=== PATIENT | male | born 1965 | race Caucasian/White ===

== ENCOUNTER 2019-07-18 09:53 | Emergency (ER) | payer OTHER, SELFPAY ==
[2019-07-18 10:00] VITALS: BP 160/74; PULSE 80; RESP 18; TEMP 36.7; O2SAT 93; BMI 34.3
--- NOTE | 2019-07-18 10:27 | ED_ITS ---
HPI - General Adult General Chief complaint: Shortness of Breath/Dyspnea Stated complaint: CHRONIC COUGH Time Seen by Provider: 07/18/19 10:01 Source: patient Mode of arrival: ambulatory Limitations: no limitations History of Present Illness HPI narrative: Patient is a 54-year-old male with a history of hypertension is currently on lisinopril here for evaluation of a chronic cough. He states that it is a productive cough of clear sputum. Denies any fevers however he does state that he has episodes of profuse sweating. He does not know whether not that is associated with a cough. No recent travel. Has not tried anything for his cough prior to arrival. He states that he at 1 point he was told that he has ?seasonal asthma ?but does not take any medicines for this. Denies any history of reflux. He states that at periods of time he coughs so much that he almost passes out. Related Data Home Medications Medication Instructions Recorded Confirmed aspirin 81 mg PO DAILY 07/18/19 07/18/19 lisinopril 20 mg PO DAILY 07/18/19 07/18/19 Previous Rx's Medication Instructions Recorded hydrochlorothiazide 25 mg PO DAILY #30 tab 07/18/19 Allergies Allergy/AdvReac Type Severity Reaction Status Date / Time No Known Drug Allergies Allergy Verified 07/18/19 10:25 Review of Systems Constitutional Constitutional: Denies fever(s) Cardiovascular Cardiovascular: Denies chest pain Respiratory Respiratory: Reports cough Gastrointestinal Gastrointestinal: Denies abdominal pain, Denies nausea and Denies vomiting Musculoskeletal Musculoskeletal: Denies myalgias and Denies arthralgias Integumentary/Breasts Skin/Breast: Denies rash Neurologic Neurologic: Denies behavioral changes Psychiatric Psychiatric: Denies behavioral changes Hematologic/Lymphatic Hematologic/Lymphatic: Denies easy bleeding and Denies easy bruising [facility] Medical History Hypertension (Acute) Social History Smoking Status: Never smoker Social History Smoking Status: Never smoker Exam Initial Vital Signs Initial Vital Signs: Vital Signs Temperature 98.0 F 07/18/19 10:00 Pulse Rate 80 07/18/19 10:00 Respiratory Rate 18 07/18/19 10:00 Blood Pressure 160/74 H 07/18/19 10:00 Pulse Oximetry 93 07/18/19 10:00 Const General: cooperative and comfortable Orientation: alert, awake and oriented x3 HENMT Head: normal to inspection and normocephalic Resp Effort & Inspection: normal respiratory effort Auscultation: clear to auscultation bilaterally Cardio Rate: regular rate Rhythm: regular rhythm GI Inspection: non-distended Palpation: soft Skin Lesions: no lesions Rashes: no rashes Neuro General: alert and awake Cognition: normal cognition Speech: speech normal Extrem General: normal to inspection and capillary refill normal Psych Appearance: grossly normal and well kempt Course Orders Ordered: ED Orders 07/18/19 10:15 Basic Metabolic Panel Stat Complete Blood Count AUTO DIFF Stat Thyroid Stimulating Hormone Stat 07/18/19 10:28 XR chest 2V Stat Vital Signs Vital signs: Vital Signs - 8 hr 07/18/19 10:00 07/18/19 10:30 07/18/19 11:00 Temperature 98.0 F Pulse Rate 80 81 79 Respiratory Rate 18 13 15 Blood Pressure 160/74 H Blood Pressure [Right Arm] 143/66 H 151/65 H Pulse Oximetry 93 95 97 07/18/19 11:30 Temperature Pulse Rate 78 Respiratory Rate 16 Blood Pressure Blood Pressure [Right Arm] 155/79 H Pulse Oximetry 96 Medical Decision Making Lab Data Lab results reviewed: Yes I reviewed the patient's lab results. Result diagrams: 07/18/19 10:15 07/18/19 10:15 Labs: Lab Results 07/18/19 07/18/19 07/18/19 Range/Units 10:15 10:15 10:15 WBC 10.5 (4.5-11.0) X10^3/uL RBC 5.32 (4.5-5.9) X10^6/uL Hgb 15.2 (13.5-17.5) g/dL Hct 44.5 (41-53) % MCV 83.6 (80-100) fL MCH 28.7 (26-34) PG MCHC 34.3 (30-36) % RDW 14.6 (11.6-14.8) % Plt Count 276 (150-400) X10^3/uL Neut % (Auto) 69.0 (50-75) % Lymph % (Auto) 17.0 L (25-40) % [place] % (Auto) 10.8 (3-14) % Eos % (Auto) 2.6 (2-4) % Baso % (Auto) 0.6 (0-2) % Neut # (Auto) 7200 H (3690-5878) /uL Lymph # (Auto) 1800 (7867-1870) /uL [place] # (Auto) 1100 H (0-900) /uL Eos # (Auto) 300 (0-450) /uL Baso # (Auto) 100 (0-100) /uL Sodium 137 (137-145) mmol/L Potassium 4.1 (3.4-5.1) mmol/L Chloride 101 (98-107) mmol/L Carbon Dioxide 24 (22-32) mmol/L BUN 18 (9-20) mg/dL Creatinine 0.80 (0.66-1.25) mg/dL Estimated GFR > 60.0 (>60) mL/min BUN/Creatinine Ratio 22.5 H (6-22) Glucose 117 H (70-100) mg/dL Calcium 9.2 (8.4-10.2) mg/dL TSH 1.17 (0.47-4.68) uIU/mL Imaging Data Chest x-ray: Radiologist's impression: [place] [address] XRay Report Signed Patient: Hudson Loza JMR#: [id number] : 1965Acct:[id number] Age/Sex: 54 / MDate of Service: 07/18/19 Loc: ED Accession Number: [id number] Procedure: XR chest 2V Ordering Provider: Micah Gusman D.O. PROCEDURE: XR CHEST 2V INDICATIONS: Chronic cough TECHNIQUE: 2 views of the chest were acquired. COMPARISON: None. FINDINGS: Surgical changes and devices: None. Lungs and pleura: Lungs are clear. No pleural effusions or pneumothorax. Mediastinum: Mediastinal contours are normal. Heart size is normal. Bones and chest wall: No suspicious bony abnormalities. Age-appropriate bony degenerative changes are seen. Soft tissues appear unremarkable. IMPRESSION: No focal infiltrates are seen. Dictated by: José Miguel Gomez M.D. on 07/18/2019 at 9:54 Approved by: José Miguel Gomez M.D. on 07/18/2019 at 9:54 ECG Data Attestation: I personally reviewed and interpreted this ECG as follows: Prior ECG tracings: not available for review Interpretation: Sinus rhythm Ventricular rate 82 Occasional PACs Normal QRS Left axis deviation Nonspecific ST T wave changes MDM Narrative Medical decision making narrative: Patient has had months of a chronic cough. His chest x-ray shows no signs of pneumonia. I have low suspicion for an atypical pneumonia. He is afebrile. He is currently taking lisinopril which very well could be causing his symptoms. We also discussed other potential cau ses to include reflux disease, sinus congestion, or other interstitial lung issues. 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 Plan will be is to have the patient stop his lisinopril. We will start him on hydrochlorothiazide to replace this medication. He is going to take his blood pressures at home. Is going to call his primary doctor for a follow-up. He is not in any respiratory distress. We discussed that if stopping lisinopril does not improve his symptoms that he should start other medications such as Zantac and or Claritin. Patient expressed understanding and agreement plan. Discharge Plan Departure Patient Disposition: Home Clinical Impression: Cough Instructions: DI for Cough -- Adult Activity Restrictions/Additional Instructions: I recommend that you stop taking your lisinopril. We will start you on hydrochlorothiazide. Contact your primary doctor tomorrow for a follow-up. If your cough does not improve after stopping lisinopril I would suggest starting a reflux medicine such as Zantac. Also recommend starting a decongestant such as Claritin or [place] or Zyrtec. Return to the emergency department for any new or worsening symptoms Prescriptions: New hydrochlorothiazide 25 mg tablet 25 mg PO DAILY Qty: 30 RF: 0 No Action lisinopril 20 mg Tablet 20 mg PO DAILY RF: 0 aspirin 81 mg Tablet,Chewable 81 mg PO DAILY RF: 0 Stand Alone Forms: Work Release Note
[2019-07-18 10:30] VITALS: BP 143/66; PULSE 81; RESP 13; O2SAT 95
[2019-07-18 10:38] LABS: Add Manual Diff / Slide Review NO; Basophils Absolute Auto 100 /uL (0-100); Basophils Percent Auto 0.6 % (0-2); Eosinophils Absolute Auto 300 /uL (0-450); Eosinophils Percent Auto 2.6 % (2-4); Hematocrit 44.5 % (41-53); Hemoglobin 15.2 g/dL (13.5-17.5); Lymphocytes Absolute Auto 1800 /uL (1100-4500); Mean Corpuscular HGB Conc 34.3 % (30-36); Mean Corpuscular Hemoglobin 28.7 PG (26-34); Mean Corpuscular Volume 83.6 fL (80-100); Monocytes Absolute Auto 1100 /uL (0-900); Monocytes Percent Auto 10.8 % (3-14); Neutrophils Absolute Auto 7200 /uL (1500-7000); Platelet Count 276 X10^3/uL (150-400); Red Blood Cell Count 5.32 X10^6/uL (4.5-5.9); Red Cell Distribution Width 14.6 % (11.6-14.8); White Blood Cell Count 10.5 X10^3/uL (4.5-11.0)
[2019-07-18 10:50] LABS: BUN Creatinine Ratio 22.5 (6-22); Blood Urea Nitrogen 18 mg/dL (9-20); Calcium 9.2 mg/dL (8.4-10.2); Carbon Dioxide 24 mmol/L (22-32); Chloride 101 mmol/L (98-107); Estimated Glomerular Filt Rate > 60.0 mL/min (>60); Glucose 117 mg/dL (70-100); HEMOLYSIS 41 (0-50); Potassium 4.1 mmol/L (3.4-5.1); Sodium 137 mmol/L (137-145)
[2019-07-18 11:00] VITALS: BP 151/65; PULSE 79; RESP 15; O2SAT 97
[2019-07-18 11:21] LABS: Thyroid Stimulating Hormone 1.17 uIU/mL (0.47-4.68)
[2019-07-18 11:30] VITALS: BP 155/79; PULSE 78; RESP 16; O2SAT 96
== END 2019-07-18 12:17 | disposition home or self-care (01) ==
PROVIDERS: Emergency Provider Emergency Medicine
DX: R05 Cough (principal)
CPT/HCPCS: 71046; 80048; 84443; 85025; 93005; 99283; 99285

== ENCOUNTER → 2024-05-10 09:17 | Outpatient (CLI) | payer OTHER, SELFPAY ==
--- NOTE | 2024-05-10 10:14 | EKG_ITS ---
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
[2024-05-10 11:03] LABS: Add Manual Diff / Slide Review NO; Basophils Absolute Auto 100 /uL (0-100); Eosinophils Absolute Auto 300 /uL (0-450); Eosinophils Percent Auto 3.8 % (2-4); Hemoglobin 14.9 g/dL (13.5-17.5); Lymphocytes Absolute Auto 1700 /uL (1100-4500); Lymphocytes Percent Auto 21.7 % (25-40); Mean Corpuscular HGB Conc 33.7 % (30-36); Mean Corpuscular Hemoglobin 29.5 PG (26-34); Mean Corpuscular Volume 87.6 fL (80-100); Monocytes Absolute Auto 700 /uL (0-900); Monocytes Percent Auto 9.3 % (3-14); Neutrophils Absolute Auto 4900 /uL (1500-7000); Neutrophils Percent Auto 64.2 % (50-75); Platelet Count 300 X10^3/uL (150-400); Red Blood Cell Count 5.03 X10^6/uL (4.5-5.9); Red Cell Distribution Width 13.8 % (11.6-14.8); White Blood Cell Count 7.7 X10^3/uL (4.5-11.0)
[2024-05-10 11:17] LABS: Hemoglobin A1C% w Est Avg Glu 5.7 % (4.0-6.0)
[2024-05-10 12:36] LABS: Albumin 4.6 g/dL (3.5-5.0); BUN Creatinine Ratio 17.4 (6-22); Blood Urea Nitrogen 16 mg/dL (9-20); Calcium 9.3 mg/dL (8.4-10.2); Carbon Dioxide 30 mmol/L (22-32); Chloride 104 mmol/L (98-107); Estimated Glomerular Filt Rate > 60 mL/min (>60); Glucose 96 mg/dL (80-110); HEMOLYSIS < 15 (0-50); Potassium 5.3 mmol/L (3.4-5.1); Sodium 140 mmol/L (137-145)
[2024-05-10 12:44] LABS: Prealbumin 36.4 mg/dL (17.6-36.0)
[2024-05-10 13:07] LABS: Vitamin D 25 Hydroxy (D3) 38.6 ng/mL (30.0-100.0)
== END ==
PROVIDERS: Referring Provider Orthopaedic Surgery Adult Reconstructive Orthopaedic Surgery; Visit Provider Orthopaedic Surgery Adult Reconstructive Orthopaedic Surgery
DX: Z01.812 Encounter for preprocedural laboratory examination (principal); Z01.818 Encounter for other preprocedural examination; R77.0 Abnormality of albumin; E55.9 Vitamin D deficiency, unspecified; R73.9 Hyperglycemia, unspecified
CPT/HCPCS: 36415; 80048; 82040; 82306; 83036; 84134; 85025; 93005